=== PATIENT | female | born 1965 | race Caucasian/White ===

== ENCOUNTER 2018-03-08 12:42 | Emergency (ER) | payer BC ==
[~2018-03-08] VITALS: Ht 160 cm; Wt 70.5 kg
[2018-03-08 12:48] VITALS: BP 149/82; Ht 160 cm; Wt 70.5 kg
[2018-03-08] MEDS ORDERED: NAPROSYN500 MG PO (12:50)
[2018-03-08 13:38] LABS: ALBUMIN 3.8 g/dL (3.4-5.0); ANION GAP 14.1 mmol/L (8-16); BILIRUBIN - TOTAL 0.49 mg/dL (0.2-1.3); CALCIUM 8.4 mg/dL (8.5-10.1); CARBON DIOXIDE 24.6 mmol/L (21.0-32.0); CREATININE - SERUM 0.9 mg/dL (0.6-1.3); POTASSIUM - SERUM 3.7 mmol/L (3.5-5.1); PROTEIN - SERUM 6.7 g/dL (6.4-8.2)
[2018-03-08 13:55] LABS: BASOPHILS 0.2 % (0-2); HEMATOCRIT 36.9 % (36.0-48.0); HEMOGLOBIN 13.4 g/dL (12-16); IMMATURE GRANULOCYTES 0.4 % (0-5); LYMPHOCYTES 25.4 % (15-50); MCH 31.8 pg (26.0-34.0); MCHC 36.3 g/dL (31.0-37.0); MCV 87.6 fL (80.0-100.0); MEAN PLATELET VOLUME 12.1 fL (7.4-10.4); MONOCYTES 6.3 % (2-11); NEUTROPHILS 66.7 % (40-80); PLATELET COUNT 178 10x3/uL (130-400); RBC 4.21 10x6/uL (4.00-5.40); RDW 12.1 % (11.5-14.5); WBC 9.8 10x3/uL (4.8-10.8)
[2018-03-08] MEDS ORDERED: CIPRO250 MG PO (14:12)
[2018-03-08] MEDS ORDERED: FLAGYL500 MG PO (14:12)
[2018-03-08] MEDS ORDERED: NORCO 7.5/325 T1 TA1 PO (14:13)
[2018-03-08 14:57] LABS: APPEARANCE CLEAR (CLEAR); BILIRUBIN NEGATIVE (NEGATIVE); COLOR DK YELLOW (YELLOW); GLUCOSE NEGATIVE (NEGATIVE); KETONE NEGATIVE (NEGATIVE); NITRITE POSITIVE (NEGATIVE); PROTEIN NEGATIVE (NEGATIVE); UROBILINOGEN NORMAL (NORMAL)
[2018-03-08 14:58] LABS: BACTERIA FEW /hpf (NONE SEEN); RED CELLS - URINE >50 /hpf (0-5); WHITE CELLS - URINE OCC /hpf (0-5)
== END 2018-03-08 15:58 | disposition home or self-care (01) ==
LOC: D.ER 12:42
PROVIDERS: Emergency Medicine
DX: R10.32 Left lower quadrant pain (principal)

== ENCOUNTER 2018-03-10 04:21 | Emergency (ER) | payer BC ==
[~2018-03-10] VITALS: Ht 160 cm; Wt 70.9 kg
[~2018-03-10 04:21] MED LIST: CIPRO250 MG PO; FLAGYL500 MG PO; NAPROSYN500 MG PO; NORCO 7.5/325 T1 TA1 PO
[2018-03-10 04:27] VITALS: Ht 160 cm; Wt 70.9 kg
[2018-03-10] MEDS ORDERED: FLOMAX0.4 MG PO (05:31)
[2018-03-10] MEDS ORDERED: PERCOCET 5-3251 TAB PO (05:31)
[2018-03-10 05:56] VITALS: BP 110/78
== END 2018-03-10 05:57 | disposition home or self-care (01) ==
LOC: D.ER 04:21
DX: N20.1 Calculus of ureter (principal)